=== PATIENT | male | born 1970 | race African-American/Black ===

== ENCOUNTER 2016-10-21 21:56 | Emergency (ER) | payer OTHER ==
[2016-10-21 22:03] VITALS: BP 136/84
--- NOTE | 2016-10-21 22:06 | ER Document Report ---
ED Medical Screen (RME) - General Chief Complaint: Knee Pain Stated Complaint: LEFT KNEE PAIN Time seen by provider: 22:06 Mode of Arrival: Ambulatory Information source: Patient Notes: 46-year-old male with chronic left knee pain but it is been worse for 2 days. It is warm. No history of gout. TRAVEL OUTSIDE OF THE [place] IN LAST 30 DAYS: No - Related Data Allergies/Adverse Reactions: No Known Allergies Allergy (Verified 12/13/15 11:40) Past Medical History - Past Medical History Cardiac Medical History: Reports: Hx Hypertension Musculoskeltal Medical History: Denies Hx Arthritis, Denies Hx Gout - Immunizations Immunizations up to date: Yes Hx Diphtheria, Pertussis, Tetanus Vaccination: Yes Physical Exam - Vital signs Vitals: Temp Pulse Resp BP Pulse Ox 98.4 F 63 18 136/84 H 99 10/21/16 22:01 10/21/16 22:01 10/21/16 22:01 10/21/16 22:01 10/21/16 22:01 Course - Vital Signs Vital signs: Temp Pulse Resp BP Pulse Ox 98.4 F 63 18 136/84 H 99 10/21/16 22:01 10/21/16 22:01 10/21/16 22:01 10/21/16 22:01 10/21/16 22:01
[2016-10-21] MEDS ORDERED: INDOMETHACIN 50 MG CAPSULE PO ONE (22:51)
[2016-10-21] MEDS ORDERED: COLCHICINE 0.6 MG TABLET PO ONE ×2 (22:52→22:53)
--- NOTE | 2016-10-21 22:58 | ER Document Report ---
ED General - General Chief Complaint: L knee pain Stated Complaint: LEFT KNEE PAIN Mode of Arrival: Ambulatory TRAVEL OUTSIDE OF THE [place] IN LAST 30 DAYS: No - Related Data Allergies/Adverse Reactions: No Known Allergies Allergy (Verified 12/13/15 11:40) Past Medical History - General Information source: Patient - Social History Smoking Status: Unknown if Ever Smoked Family History: Reviewed & Not Pertinent Patient has suicidal ideation: No Patient has homicidal ideation: No - Past Medical History Cardiac Medical History: Reports: Hx Hypertension Musculoskeltal Medical History: Denies Hx Arthritis, Denies Hx Gout - Immunizations Immunizations up to date: Yes Hx Diphtheria, Pertussis, Tetanus Vaccination: Yes Physical Exam - Vital signs Vitals: Temp Pulse Resp BP Pulse Ox 98.4 F 63 18 136/84 H 99 10/21/16 22:01 10/21/16 22:01 10/21/16 22:01 10/21/16 22:01 10/21/16 22:01 Course - Vital Signs Vital signs: Temp Pulse Resp BP Pulse Ox 98.4 F 63 18 136/84 H 99 10/21/16 22:01 10/21/16 22:01 10/21/16 22:01 10/21/16 22:01 10/21/16 22:01 Discharge - Discharge Clinical Impression: Knee pain, left Qualifiers: Chronicity: acute Qualified Code(s): M25.562 - Pain in left knee Condition: Good Disposition: HOME, SELF-CARE Additional Instructions: Your knee swelling and pain could represent gout or arthritis. We are treating you for both. I will give you a few days off work. I will also write a work note saying that he cannot be on your knees at work for the next week. Please wear knee pads at work whenever you have to be on your knees at work in the future. Currently your exam does not represent that of an infected knee joint. An infected knee joint is very stiff and difficult to move. It's also very warm to touch and sometimes red. You may also have fevers. If you develop any of those symptoms you must return to ER the immediately. Please follow closely with Dr. Ricks for close reevaluation. Prescriptions: Indomethacin [Indocin 50 mg Capsule] 50 mg PO TID #21 capsule Forms: Special Work Note, Return to Work Referrals: KRUNAL WALKER MD [Primary Care Provider] - 10/24/16
== END 2016-10-21 23:35 | disposition home or self-care (01) ==
LOC: ER 21:56
DX: M25.562 Pain in left knee (principal); I10 Essential (primary) hypertension
CPT/HCPCS: 99283

== ENCOUNTER 2016-11-25 15:46 | Emergency (ER) | payer OTHER ==
--- NOTE | 2016-11-25 16:02 | ER Document Report ---
ED Medical Screen (RME) - General Stated Complaint: VOMITING Time seen by provider: 16:00 Mode of Arrival: Ambulatory Information source: Relative - Son is speaking for the patient because patient does not speak or hear. Notes: 46-year-old male presents to ED for headache with sinus pressure, abdominal pain with nausea vomiting and diarrhea. 3 episodes of diarrhea and vomiting today. Sore throat productive cough dizziness with a headache. Symptoms started yesterday and became worse today I have greeted and performed a rapid initial assessment of this patient. A comprehensive ED assessment and evaluation of the patient, analysis of test results and completion of medical decision making process will be conducted by an additional ED providers. TRAVEL OUTSIDE OF THE [place] IN LAST 30 DAYS: No - Related Data Allergies/Adverse Reactions: No Known Allergies Allergy (Verified 11/25/16 15:52) Past Medical History - Past Medical History Cardiac Medical History: Reports: Hx Hypertension Musculoskeltal Medical History: Denies Hx Arthritis, Denies Hx Gout - Immunizations Immunizations up to date: Yes Hx Diphtheria, Pertussis, Tetanus Vaccination: Yes Physical Exam - Vital signs Vitals: Temp Pulse Resp BP Pulse Ox 99.7 F 94 20 114/73 95 11/25/16 15:56 11/25/16 15:56 11/25/16 15:56 11/25/16 15:56 11/25/16 15:56 Course - Vital Signs Vital signs: Temp Pulse Resp BP Pulse Ox 99.7 F 94 20 114/73 95 11/25/16 15:56 11/25/16 15:56 11/25/16 15:56 11/25/16 15:56 11/25/16 15:56
[2016-11-25] MEDS ORDERED: ONDANSETRON 4 MG TAB.RAPDIS PO ONE (16:03)
[2016-11-25] MEDS ORDERED: ACETAMINOPHEN 325 MG TABLET PO ONE (16:03)
[2016-11-25 16:32] LABS: HEMATOCRIT 42.5 % (37.9-51.0); HEMOGLOBIN 13.8 g/dL (13.5-17.0); HGB HCT DIFFERENCE -1.1; MEAN CORPUSCULAR HEMOGLOBIN 27.5 pg (27.0-33.4); MEAN CORPUSCULAR HGB CONC 32.5 g/dL (32.0-36.0); MEAN CORPUSCULAR VOLUME 85 fl (80-97); RED BLOOD COUNT 5.03 10^6/uL (4.35-5.55); RED CELL DISTRIBUTION WIDTH 14.1 % (11.5-14.0); WHITE BLOOD COUNT 4.4 10^3/uL (4.0-10.5)
[2016-11-25 16:34] LABS: APPEARANCE,URINE CLEAR; BILIRUBIN,URINE NEGATIVE (NEGATIVE); GLUCOSE, URINE NEGATIVE (NEGATIVE); KETONES,URINE TRACE mg/dL (NEGATIVE); LEUKOCYTE ESTERASE,URINE NEGATIVE (NEGATIVE); NITRITE,URINE NEGATIVE (NEGATIVE); PROTEIN,URINE NEGATIVE (NEGATIVE); URINE SPECIFIC GRAVITY 1.024; UROBILINOGEN,URINE NEGATIVE mg/dL (<2.0)
[2016-11-25 16:47] LABS: ALANINE AMINOTRANSFERASE 46 U/L (21-72); ALBUMIN 4.6 g/dL (3.5-5.0); ALKALINE PHOSPHATASE 56 U/L (38-126); ANION GAP 12 (5-19); ASPARTATE AMINO TRANSFERASE 41 U/L (17-59); BILIRUBIN,TOTAL 0.6 mg/dL (0.2-1.3); BLOOD UREA NITROGEN 20 mg/dL (7-20); CALCIUM 9.1 mg/dL (8.4-10.2); CARBON DIOXIDE 29 mmol/L (22-30); CHLORIDE 99 mmol/L (98-107); CREATININE RESULT 1.49 mg/dL (0.52-1.25); GLUCOSE 94 mg/dL (75-110); POTASSIUM 3.9 mmol/L (3.6-5.0); SODIUM 139.9 mmol/L (137-145); TOTAL PROTEIN 7.6 g/dL (6.3-8.2)
[2016-11-25 16:53] LABS: BAND NEUTROPHILS % (MANUAL) 1 % (3-5); BASOPHILS % (MANUAL) 0 % (0-2); EOSINOPHILS % (MANUAL) 1 % (0-6); LYMPHOCYTES % (MANUAL) 32 % (13-45); TOTAL CELLS COUNTED 100
[2016-11-25 16:54] LABS: ANISOCYTOSIS SLIGHT; TOXIC GRANULATION SLIGHT
--- NOTE | 2016-11-25 17:57 | ER Document Report ---
ED General - General Chief Complaint: Abdominal Pain Stated Complaint: VOMITING Time seen by provider: 17:35 Mode of Arrival: Ambulatory Information source: Patient, Relative Notes: 46-year-old male who is deaf. 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 Patient has 2 day history of nausea vomiting diarrhea subjective fevers and chills. Reports occasional sore throat and vomiting but not otherwise. He denies earache, cough, chest pain, or back pain. Reports occasional epigastric discomfort with his nausea. He reports about 4 episodes of vomiting and 4 episodes of diarrhea today. He denies dysuria, denies hematemesis or melena. Physical Exam: General: Alert, appears well. HEENT: Normocephalic. Atraumatic. PERRLA. Extraocular movements intact. Oropharynx clear. Neck: Supple. Non-tender. Respiratory: No respiratory distress. Clear and equal breath sounds bilaterally. Cardiovascular: Regular rate and rhythm. Abdominal: Normal Inspection. Soft, non-tender. No distension. Normal Bowel Sounds. Back: Non-tender. No deformity or step off. Extremities: Moves all four extremities. Upper extremities: Normal inspection. Non-tender. Normal color. Normal ROM. Normal temperature. Lower extremities: Normal inspection. Non-tender. No edema. Normal color. Normal ROM. Normal temperature. Neurological: Speech clear mentation normal Psychological: Normal affect. Normal Mood. Skin: Warm. Dry. Normal color. TRAVEL OUTSIDE OF THE [place] IN LAST 30 DAYS: No - Related Data Allergies/Adverse Reactions: No Known Allergies Allergy (Verified 11/25/16 15:52) Past Medical History - General Information source: Relative - Son is speaking for the patient because patient does not speak or hear. - Social History Smoking Status: Current Every Day Smoker Chew tobacco use (# tins/day): No Frequency of alcohol use: None Drug Abuse: None Family History: Hypertension Patient has suicidal ideation: No - Past Medical History Cardiac Medical History: Reports: Hx Hypertension Renal/ Medical History: Denies: Hx Peritoneal Dialysis Musculoskeltal Medical History: Denies Hx Arthritis, Denies Hx Gout - Immunizations Immunizations up to date: Yes Hx Diphtheria, Pertussis, Tetanus Vaccination: Yes Review of Systems - Review of Systems Constitutional: See HPI EENT: See HPI. denies: Ear pain Cardiovascular: denies: Chest pain, Palpitations, Syncope Respiratory: See HPI Gastrointestinal: See HPI Genitourinary: denies: Burning, Dysuria Musculoskeletal: denies: Back pain Skin: denies: Rash Hematologic/Lymphatic: denies: Swollen glands Neurological/Psychological: denies: Weakness, Numbness Physical Exam - Vital signs Vitals: Temp Pulse Resp BP Pulse Ox 99.7 F 94 20 114/73 95 11/25/16 15:56 11/25/16 15:56 11/25/16 15:56 11/25/16 15:56 11/25/16 15:56 Course - Re-evaluation Re-evalutation: 11/25/16 17:56 Patient has a presentation consistent with a viral gastroenteritis. He has a benign abdomen. We discharged with a prescription for Phenergan and instructed follow with his primary care physician next week for recheck - Vital Signs Vital signs: Temp Pulse Resp BP Pulse Ox 99.7 F 94 20 114/73 95 11/25/16 15:56 11/25/16 15:56 11/25/16 15:56 11/25/16 15:56 11/25/16 15:56 - Laboratory Result Diagrams: 11/25/16 16:07 11/25/16 16:07 Laboratory results interpreted by me: 11/25/16 11/25/16 11/25/16 16:07 16:07 16:07 RDW 14.1 H Band Neutrophils % 1 L Monocytes % (Manual) 20 H Creatinine 1.49 H Est GFR (Non-Af Amer) 51 L Urine Ketones TRACE H - Diagnostic Test Radiology reviewed: Image reviewed, Reports reviewed Discharge - Discharge Clinical Impression: Viral syndrome Nausea & vomiting Qualifiers: Vomiting type: unspecified Vomiting Intractability: unspecified Qualified Code( s): R11.2 - Nausea with vomiting, unspecified Condition: Stable Disposition: HOME, SELF-CARE Instructions: Viral Syndrome ([facility]) Prescriptions: Promethazine HCl [Phenergan 25 mg Tablet] 1 tab PO Q6H PRN #20 tablet PRN Reason: Forms: Return to Work Referrals: KRUNAL WALKER MD [ACTIVE STAFF] - Follow up as needed
[2016-11-25 18:56] VITALS: BP 117/72
== END 2016-11-25 18:39 | disposition home or self-care (01) ==
LOC: ER 15:46
DX: R11.2 Nausea with vomiting, unspecified (principal); B34.9 Viral infection, unspecified; R19.7 Diarrhea, unspecified; R68.83 Chills (without fever); J02.9 Acute pharyngitis, unspecified; H91.3 Deaf nonspeaking, not elsewhere classified; F17.200 Nicotine dependence, unspecified, uncomplicated; I10 Essential (primary) hypertension
CPT/HCPCS: 99284; 36415; 85025; 80053; 81001; 71020; S0119

== ENCOUNTER 2017-08-25 10:37 | Emergency (ER) | payer OTHER ==
--- NOTE | 2017-08-25 11:10 | ER Document Report ---
HPI - HPI Pain Level: 5 Notes: Patient is a 47-year-old male with a history of chronic foot/toe pain who presents the ED complaining of continued pain to the left great toe near the MTP joint. Patient states that he has noticed some swelling to the area and increased pain. Patient is accompanied by his son who is a statistical analyst for sign language. Son states that he has had this pain for years and it will come and go without any known trigger or event. Patient has not been evaluated by a specialist. Patient has not been able to ambulate for long periods of time because of the pain. The pain will occasionally radiate up towards his ankle. He denies any other significant medical history aside from hypertension. Patient was evaluated here recently for left knee pain. He denies any drug allergies. Denies any smoking or IV drug use. Denies any headache, fever, chest pain, palpitations, syncope, cough, shortness of breath, wheeze, dyspnea, abdominal pain, nausea/vomiting/diarrhea, back pain, urinary retention, dysuria , hematuria, loss of control of bowel or bladder, numbness/tingling, saddle anesthesia, muscle paralysis/weakness, or rash. - ROS Notes: REVIEW OF SYSTEMS: CONSTITUTIONAL : Denies fever, chills, or sweats. Denies recent illness. EENT: Denies eye, ear, throat, or mouth pain or symptoms. Denies nasal or sinus congestion or discharge. Denies throat, tongue, or mouth swelling or difficulty swallowing. CARDIOVASCULAR: Denies chest pain. Denies palpitations or racing or irregular heart beat. Denies ankle edema. RESPIRATORY: Denies cough, cold, or chest congestion. Denies shortness of breath, difficulty breathing, or wheezing. GASTROINTESTINAL: Denies abdominal pain or distention. Denies nausea, vomiting , or diarrhea. Denies blood in vomitus, stools, or per rectum. Denies black, tarry stools. Denies constipation. GENITOURINARY: Denies difficulty urinating, painful urination, burning, frequency, blood in urine, or discharge. MUSCULOSKELETAL: see hpi SKIN: Denies rash, lesions or sores. NEUROLOGICAL: Denies confusion or altered mental status. Denies passing out or loss of consciousness. Denies dizziness or lightheadedness. Denies headache. Denies weakness or paralysis or loss of use of either side. Denies problems with gait or speech. Denies sensory loss, numbness, or tingling. ALL OTHER SYSTEMS REVIEWED AND NEGATIVE. Dictation was performed using [employer] voice recognition software - CARDIOVASCULAR Cardiovascular: DENIES: Chest pain - REPRODUCTIVE Reproductive: DENIES: : - DERM Skin Color: Normal Past Medical History - Social History Smoking Status: Never Smoker Chew tobacco use (# tins/day): No Frequency of alcohol use: None Drug Abuse: None Family History: Reviewed & Not Pertinent - Past Medical History Cardiac Medical History: Reports: Hx Hypertension Renal/ Medical History: Denies: Hx Peritoneal Dialysis Musculoskeltal Medical History: Denies Hx Arthritis, Denies Hx Gout, Reports Hx Musculoskeletal Trauma Past Surgical History: Reports: Other - Mole removed - Immunizations Immunizations up to date: Yes Hx Diphtheria, Pertussis, Tetanus Vaccination: Yes Vertical Provider Document - CONSTITUTIONAL Agree With Documented VS: Yes Notes: PHYSICAL EXAMINATION: GENERAL: Well-appearing, well-nourished and in no acute distress. LUNGS: Breath sounds clear to auscultation bilaterally and equal. No wheezes rales or rhonchi. HEART: Regular rate and rhythm without murmurs, rubs, gallops. Musculoskeletal: Lt foot: FROM to passive/active. Strength 5+/5. + swelling noted to the MTP joint. + tenderness. no obvious erythema, ecchymosis. N/V intact distal. Extremities: No cyanosis, clubbing, or edema b/l. Peripheral pulses 2+. Capillary refill less than 3 seconds. NEUROLOGICAL: Normal speech, limping gait. Normal sensory, motor exams PSYCH: Normal mood, normal affect. SKIN: Warm, Dry, normal turgor, no rashes or lesions noted. - INFECTION CONTROL TRAVEL OUTSIDE OF THE [place] IN LAST 30 DAYS: No - RESPIRATORY O2 Sat by Pulse Oximetry: 96 Course - Re-evaluation Re-evalutation: 08/25/17 12:03 Patient is an afebrile, well-hydrated, 47-year-old male who presents the ED with a bunion to his left MTP joint. Vitals are stable. PE is otherwise unremarkable for any neurovascular compromise, obvious tendon/ligament rupture, obvious fracture or dislocation. I do not suspect any infection or gouty flare at this time. Conservative measures recommended first symptoms. I will send him home with a prescription for naproxen that he may take as directed and Voltaren gel. Recheck with your PCM this week. Consider consult with a beef cattle farmer/orthopedist. Return to the ED with any worsening/concerning symptoms otherwise as reviewed in discharge. Patient is in agreement. - Vital Signs Vital signs: Temp Pulse Resp BP Pulse Ox 97.9 F 72 18 144/99 H 96 08/25/17 10:40 08/25/17 10:40 08/25/17 10:40 08/25/17 10:40 08/25/17 10:40 Discharge - Discharge Clinical Impression: Aquiles, left Condition: Stable Disposition: HOME, SELF-CARE Additional Instructions: Do not wear constrictive footware Rest, Ice, Compression, Elevation Tylenol/ibuprofen as needed Light stretches daily Strength exercises as able Moist heat and massage may help F/u with your PCP in 3-5 days for a recheck Consider consult(s) with Orthopedics/podiatry for ongoing/worsening symptoms Return to the ED with any worsening symptoms and/or development of fever, headache, chest pain, palpitations, syncope, shortness of breath, trouble breathing, abdominal pain, n/v/d, muscle weakness/paralysis, numbness/tingling, swelling, redness, or other worsening symptoms that are concerning to you. Prescriptions: Diclofenac Sodium [Voltaren] 4 gm TP QID PRN #100 gel..gm. PRN Reason: Naproxen 500 mg PO BID PRN #30 tablet PRN Reason: Forms: Elevated Blood Pressure Referrals: KRUNAL WALKER MD [Primary Care Provider] - Follow up in 3-5 days [facility] [Provider Group] - Follow up as needed
--- NOTE | 2017-08-25 11:43 | RADIOLOGY REPORT (SQ) ---
EXAM DESCRIPTION: FOOT LEFT COMPLETE COMPLETED DATE/TIME: 08/25/2017 11:23 am REASON FOR STUDY: Lt great toe pain COMPARISON: None. NUMBER OF VIEWS: Three views. TECHNIQUE: AP, lateral and oblique radiographic images acquired of the left foot. LIMITATIONS: None. FINDINGS: MINERALIZATION: Normal. BONES: No acute fracture or dislocation. Mild bony overgrowth of the head of the 1st metatarsal. JOINTS: Hallux valgus. Mild degenerative joint changes in the 1st metatarsal-phalangeal joint. SOFT TISSUES: No soft tissue swelling. No foreign body. OTHER: No other significant finding. IMPRESSION: Bunion. Mild degenerative joint changes in the 1st metatarsal-phalangeal joint. TECHNICAL DOCUMENTATION: JOB ID: [id number] [employer]- All Rights Reserved
[2017-08-25 12:32] VITALS: BP 130/95
== END 2017-08-25 12:25 | disposition home or self-care (01) ==
LOC: ER 10:37
DX: M21.612 Bunion of left foot (principal); M79.675 Pain in left toe(s); I10 Essential (primary) hypertension
CPT/HCPCS: 99283

== ENCOUNTER 2018-07-24 14:05 | Emergency (ER) | payer OTHER ==
--- NOTE | 2018-07-24 15:58 | ER Document Report ---
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 He is complaining of left knee pain and swelling which is occurred several times before. He got down on his knee and felt a pop. Within several hours it started swelling and getting warm. He has been evaluated for gout in the past and it was negative. He has never seen an orthopedic doctor for this. He has no fever. Associated Symptoms: None Exacerbated by: Movement Relieved by: Denies Similar symptoms previously: Yes Recently seen / treated by doctor: No - ROS ROS below otherwise negative: Yes Systems Reviewed and Negative: Yes All other systems reviewed and negative - CONSTITUTIONAL Constitutional: DENIES: Fever, Chills - REPRODUCTIVE Reproductive: DENIES: : Past Medical History - General Information source: Patient - Social History Smoking Status: Never Smoker Frequency of alcohol use: None Lives with: Family Family History: Reviewed & Not Pertinent Patient has suicidal ideation: No Patient has homicidal ideation: No - Past Medical History Cardiac Medical History: Reports: Hx Hypertension Musculoskeletal Medical History: Reports Hx Musculoskeletal Trauma Past Surgical History: Reports: Other - Mole removed - Immunizations Immunizations up to date: Yes Hx Diphtheria, Pertussis, Tetanus Vaccination: Yes Vertical Provider Document - CONSTITUTIONAL Agree With Documented VS: Yes Exam Limitations: No Limitations - INFECTION CONTROL TRAVEL OUTSIDE OF THE [place] IN LAST 30 DAYS: No - MUSCULOSKELETAL/EXTREMETIES Musculoskeletal/Extremeties: Tender - Lateral mid knee, Edema Notes: Limits flexion due to pain knee, there is an effusion. the knee is warm but it is not red. Neurovascular is intact distally - NEURO Level of Consciousness: Alert - DERM Integumentary: No Rash Course - Vital Signs Vital signs: Temp Pulse Resp BP Pulse Ox 98.8 F 69 16 136/99 H 94 07/24/18 14:10 07/24/18 14:10 07/24/18 14:10 07/24/18 14:10 07/24/18 14:10 Procedures - Immobilization Left Knee Time completed: 17:40 Pre-Proc Neuro Vasc Exam: Normal Immobilizer type: Knee immobilizer Performed by: PCT Post-Proc Neuro Vasc Exam: Normal Alignment checked and good: Yes Discharge - Discharge Clinical Impression: left knee pain and effusion Knee effusion Qualifiers: Laterality: left Qualified Code(s): M25.462 - Effusion, left knee Condition: Good Disposition: HOME, SELF-CARE Instructions: Use of Crutches ([facility]), Ice & Elevation ([facility]), Knee Effusion ([facility]) , Knee Immobilizing Splint ([facility]), Sprained Knee ([facility]) Additional Instructions: Call and schedule appointment with an orthopedic surgeon Elevate with cool compress on your left knee Motrin consistently for inflammation Pain medication for severe pain every 4 hours as needed Use the knee immobilizer and crutches Return to the emergency room for any fever increased swelling or pain Prescriptions: Oxycodone HCl/Acetaminophen [Percocet 5-325 mg Tablet] 1 tab PO Q4HP PRN #10 tablet PRN Reason: Ibuprofen [Motrin 800 mg Tablet] 800 mg PO Q8HP PRN #30 tablet PRN Reason: Forms: Return to Work Referrals: JAGUAR URBINA MD [ACTIVE STAFF] - 07/26/18 (call for appointment on thursday)
[2018-07-24] MEDS ORDERED: OXYCODONE-ACETAMINOPHEN 5-325 MG TABLET PO ONE (16:12)
[2018-07-24] MEDS ORDERED: IBUPROFEN 800 MG TABLET PO ONE (16:12)
--- NOTE | 2018-07-24 17:13 | RADIOLOGY REPORT (SQ) ---
EXAM DESCRIPTION: KNEE LEFT 4 VIEW COMPLETED DATE/TIME: 07/24/2018 4:51 pm REASON FOR STUDY: pop then swelled COMPARISON: None. EXAM PARAMETERS: NUMBER OF VIEWS: Four views. TECHNIQUE: AP, lateral and both oblique radiographic images acquired of the left knee. LIMITATIONS: None. FINDINGS: MINERALIZATION: Normal. BONES: No acute fracture or dislocation. No worrisome bone lesions. JOINTS: Moderate effusion. SOFT TISSUES: No significant soft tissue swelling. No radiopaque foreign body. OTHER: No other significant finding. IMPRESSION: NO FRACTURE. Moderate joint effusion. TECHNICAL DOCUMENTATION: JOB ID: [id number] [employer]- All Rights Reserved Reading location - IP/workstation name: [facility]
[2018-07-24 17:49] VITALS: BP 138/95
== END 2018-07-24 17:48 | disposition home or self-care (01) ==
LOC: ER 14:05
DX: M25.562 Pain in left knee (principal); M25.462 Effusion, left knee; I10 Essential (primary) hypertension
CPT/HCPCS: 99283; 73564; L1830

== ENCOUNTER 2019-03-21 18:17 | Emergency (ER) | payer SELFPAY ==
--- NOTE | 2019-03-21 20:38 | RADIOLOGY REPORT (SQ) ---
EXAM DESCRIPTION: XR WRIST 3 OR MORE VIEWS BILATERAL, XR HAND 3 OR MORE VIEWS COMPLETED DATE/TME: 03/21/2019 20:01 CLINICAL HISTORY: pain COMPARISON: None FINDINGS: Three x-ray views of the right hand and wrist were submitted. There is no acute fracture or dislocation. Bone mineralization is within normal limits. There is no radiopaque foreign body material. There is narrowing of the radiocarpal joint. Suspected partial fusion of the scaphoid and lunate bone. Degenerative changes between the scaphoid and trapezium. IMPRESSION: No acute fracture or dislocation.
--- NOTE | 2019-03-21 21:30 | ER Document Report ---
HPI - HPI Time Seen by Provider: 03/21/19 21:21 Pain Level: 4 Context: Patient is a 48-year-old male that comes to the emergency department for chief complaint of right wrist pain. 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 He has had this many times in the past. He states it is painful to move. He denies trauma, redness, swelling, fever. He denies history of gout, joint surgery, joint infection. He does not use IV drugs. - REPRODUCTIVE Reproductive: DENIES: : Past Medical History - General Information source: Patient - Social History Smoking Status: Never Smoker Frequency of alcohol use: None Drug Abuse: None Lives with: Family Family History: Reviewed & Not Pertinent - Past Medical History Cardiac Medical History: Reports: Hx Hypertension Renal/ Medical History: Denies: Hx Peritoneal Dialysis Musculoskeletal Medical History: Denies Hx Arthritis, Denies Hx Gout, Reports Hx Musculoskeletal Trauma Past Surgical History: Reports: Other - Mole removed - Immunizations Immunizations up to date: Yes Hx Diphtheria, Pertussis, Tetanus Vaccination: Yes Vertical Provider Document - CONSTITUTIONAL General Appearance: WD/WN, No Apparent Distress - INFECTION CONTROL TRAVEL OUTSIDE OF THE [place] IN LAST 30 DAYS: No - HEENT HEENT: Atraumatic, Normocephalic - NECK Neck: Normal Inspection - RESPIRATORY Respiratory: Breath Sounds Normal, No Respiratory Distress - CARDIOVASCULAR Cardiovascular: Regular Rate, Regular Rhythm - GI/ABDOMEN Gastrointestinal: Abdomen Soft, Abdomen Non-Tender - BACK Back: Normal Inspection - MUSCULOSKELETAL/EXTREMETIES Musculoskeletal/Extremeties: MAEW, FROM, Tender - Generalized tenderness over the right wrist without abnormal heat, erythema, or significant swelling. 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 - NEURO Level of Consciousness: Awake, Alert, Appropriate Motor/Sensory: No Motor Deficit, No Sensory Deficit - DERM Integumentary: Warm, Dry, No Rash Course - Re-evaluation Re-evalutation: X-rays reviewed, show chronic changes but no acute findings. Patient with soreness on exam but no concerning findings including no snuffbox tenderness, no signs of septic arthritis, no neurovascular deficits. Patient provided with wrist brace for comfort, I discussed anti-inflammatory use, ice, orthopedic follow-up, expectations, and return precautions. I did review his previous renal functioning, these are always borderline, he states he wants to take the anti-inflammatory, he agrees that he will drink lots of fluids and he will follow-up with primary care and have this monitored. Patient and state satisfaction and agreement with plan. - Vital Signs Vital signs: Temp Pulse Resp BP Pulse Ox 98.4 F 65 18 161/96 H 95 03/21/19 18:26 03/21/19 18:26 03/21/19 18:26 03/21/19 18:26 03/21/19 18:26 Procedures - Immobilization Right wrist Pre-Proc Neuro Vasc Exam: Normal Immobilizer type: Cock-up - Right wrist Performed by: TIMUR Post-Proc Neuro Vasc Exam: Normal Alignment checked and good: Yes Discharge - Discharge Clinical Impression: Right wrist pain Condition: Stable Disposition: HOME, SELF-CARE Additional Instructions: Use the wrist brace, apply ice to your wrist 3-4 times a day for 10 to 15 minutes, rest your hand/wrist. The x-ray shows degenerative changes and arthritis but no fracture or concerning finding is noted. If symptoms of pain continue please follow-up with the orthopedics referral for additional management of your wrist pain. Take the anti-inflammatory for pain and inflammation but make sure you drink plenty of water and get your kidney functioning rechecked with Dr. Walker. Return if you worsen including redness, swelling, increased pain, fever, or any other concerning or worsening symptoms. Prescriptions: Naproxen 500 mg PO BID PRN #20 tablet PRN Reason: Forms: Elevated Blood Pressure, Return to Work Referrals: KRUNAL WALKER MD [Primary Care Provider] - Follow up as needed
[2019-03-21] MEDS ORDERED: KETOROLAC TROMETHAMINE 60 MG/2 ML SDV IM ONE (21:36)
[2019-03-21 22:01] VITALS: BP 155/88
== END 2019-03-21 22:01 | disposition home or self-care (01) ==
LOC: ER 18:17
DX: M25.531 Pain in right wrist (principal); I10 Essential (primary) hypertension
CPT/HCPCS: 99283; 96372; 73130; 73110; L3908; J1885

== ENCOUNTER → 2019-05-06 | Outpatient (CLI) | payer OTHER ==
--- NOTE | 2019-05-06 15:36 | RADIOLOGY REPORT (SQ) ---
EXAM DESCRIPTION: KNEE LEFT 2 VIEWS COMPLETED DATE/TIME: 05/06/2019 3:21 pm REASON FOR STUDY: PAIN IN LEFT KNEE; PAIN IN LEFT ANKLE AND JOINTS OF LEFT FOOT COMPARISON: None. NUMBER OF VIEWS: Two views. TECHNIQUE: AP and lateral radiographic images acquired of the left knee. LIMITATIONS: None. FINDINGS: MINERALIZATION: Normal. BONES: No acute fracture or dislocation. No worrisome bone lesions. No significant osteophytes. JOINT: There is a small joint effusion. OTHER: No other significant finding. IMPRESSION: Small joint effusion. No acute fracture or dislocation. TECHNICAL DOCUMENTATION: JOB ID: [id number] [employer]- All Rights Reserved Reading location - IP/workstation name: [email or web address]
--- NOTE | 2019-05-06 15:36 | RADIOLOGY REPORT (SQ) ---
EXAM DESCRIPTION: ANKLE LEFT AP/LATERAL COMPLETED DATE/TIME: 05/06/2019 3:21 pm REASON FOR STUDY: PAIN IN LEFT KNEE; PAIN IN LEFT ANKLE AND JOINTS OF LEFT FOOT COMPARISON: None. NUMBER OF VIEWS: Two views. TECHNIQUE: AP and lateral radiographic images acquired of the left ankle. LIMITATIONS: None. FINDINGS: MINERALIZATION: Normal. BONES: No acute fracture or dislocation. No worrisome bone lesions. JOINTS: No effusions. SOFT TISSUES: No soft tissue swelling. No foreign body. OTHER: No other significant finding. IMPRESSION: NEGATIVE STUDY OF THE LEFT ANKLE. NO RADIOGRAPHIC EVIDENCE OF ACUTE INJURY. TECHNICAL DOCUMENTATION: JOB ID: [id number] [employer]- All Rights Reserved Reading location - IP/workstation name: [email or web address]
== END ==
LOC: OD 15:07
PROVIDERS: ATTEND Internal Medicine
DX: M25.562 Pain in left knee (principal); M25.572 Pain in left ankle and joints of left foot

== ENCOUNTER → 2020-06-13 | Outpatient (CLI) | payer OTHER ==
--- NOTE | 2020-06-14 10:45 | RADIOLOGY REPORT (SQ) ---
EXAM DESCRIPTION: MRI RT LOWER JOINT WITHOUT IMAGES COMPLETED DATE/TIME: 06/13/2020 11:07 am REASON FOR STUDY: M25.571 M25.571 COMPARISON: None. TECHNIQUE: Right ankle images acquired and stored on PACS. Multiplanar images include fat sensitive sequences as T1, fluid sensitive sequences as FST2/STIR, cartilage sensitive sequences as FSPD, and g radient echo sequences. LIMITATIONS: None. FINDINGS: BONE MARROW: No alteration of signal to suggest marrow replacement or edema. No occult fra cture. No large osteophytes. EFFUSIONS: Small ankle joint effusion. OSSEOUS ARTICULATIONS: Intact. Moderate degenerative changes in the ankle joint. Mild degenerative changes talonavicular joint. TALAR DOME AND TIBIAL PLAFOND: Intact. ACHILLES TENDON: Intact without partial or full-thickness tear. No adjacent bursal fluid or edema. TIBIALIS ANTERIOR TENDON: Intact without edema at the 1st MT attachment. TIBIALIS POSTERIOR TENDON: Normal morphology and no edema at the navicular attachment. No tendon oliveira th fluid. FLEXOR HALLUCIS LONGUS AND FLEXOR DIGITORUM TENDONS: Normal morphology and no tendon sheath fluid. No edema of the os trigonum. PERONEUS LONGUS AND BREVIS TENDON: Normal morphology and no tendon sheath fluid. No subluxation. ATFL, CFL, PTFL: The anterior talofibular ligament is torn. The calcaneofibular and posterior talofi bular ligaments are intact. DELTOID LIGAMENT: Visualized components intact. TARSAL TUNNEL: No masses. No muscle atrophy. SINUS TARSI: No fluid. No reactive marrow edema or erosions. PLANTAR FASCIA: No signal alteration or tear. ADJACENT SOFT TISSUES: No masses. OTHER: No other significant finding. IMPRESSION: 1. High-grade tear of the anterior talofibular ligament. 2. Degenerative changes in the ankle and talonavicular joints. TECHNICAL DOCUMENTATION: JOB ID: [id number] 2010 [employer]- All Rights Reserved Reading location - IP/workstation name: [email or web address]
== END ==
LOC: RAD 10:29
PROVIDERS: ATTEND Internal Medicine
DX: S93.491A Sprain of other ligament of right ankle, initial encounter (principal); M19.071 Primary osteoarthritis, right ankle and foot; X58.XXXA Exposure to other specified factors, initial encounter; M25.571 Pain in right ankle and joints of right foot